=== PATIENT | female | born 2005 | race Two or more races ===

== ENCOUNTER 2025-04-22 12:26 | Emergency (ER) | payer OTHER ==
[~2025-04-22] VITALS: Ht 157.5 cm; Wt 41.1 kg
[2025-04-22 13:48] VITALS: BP 119/66; O2SAT 99
[2025-04-22] MEDS ORDERED: FAMOTIDINE/PF 20 MG/2 ML VIAL IV STA (14:31)
[2025-04-22] MEDS ORDERED: ONDANSETRON HCL 2 MG/ML VIAL IV STA (14:31)
[2025-04-22] MEDS ORDERED: 0.9 % SODIUM CHLORIDE 500 ML IV SCH (14:45)
[2025-04-22] MEDS ORDERED: 0.9 % SODIUM CHLORIDE 500 ML IV ONE (14:45)
[2025-04-22] MEDS ORDERED: FAMOTIDINE/PF 20 MG/2 ML VIAL ONE (15:27)
[2025-04-22] MEDS ORDERED: ONDANSETRON HCL 2 MG/ML VIAL ONE (15:27)
[2025-04-22 15:40] LABS: BASO % 0.4 % (0.1-1.2); EOS # 0.00 (0.04-0.54); EOS % 0.0 % (0.7-7.0); LYMPH # 1.24 (1.18-3.74); LYMPH % 7.9 % (19.3-53.1); MEAN PLATELET VOLUME 9.90 fl (9.4-12.4); MONO # 0.59 (0.24-0.82); MONO % 3.7 % (4.7-12.5); NEUT # 13.80 (1.56-6.13); NEUT % 87.7 % (34.0-71.1); RED CELL DISTRIBUTION WIDTH 16.0 % (11.6-14.4)
[2025-04-22 16:03] LABS: BUN CREA RATIO 23.0 (7.0-25.0); CREATININE SERUM 0.65 mg/dL (0.55-1.02); GFR 117.42; GLUCOSE FASTING 81.0 mg/dL (65-100); OSMOLALITY SERUM 279.0 MOSM/KG (275-295)
[2025-04-22 16:16] LABS: URINE APPEARANCE Clear; URINE BILIRRUBIN Negative (NEGATIVE); URINE BLOOD Negative; URINE COLOR Yellow; URINE GLUCOSE Negative (NEGATIVE); URINE LEUKOCYTE Negative; URINE NITRATE Negative; URINE PROTEIN 30 (NEGATIVE); URINE UROBILINOGEN 0.2 E.U./dl
[2025-04-22 16:18] LABS: URINE EPITHELIAL CELLS 32.7 uL (0.0-38.8); URINE RBC 3.0 uL (0.0-20.8); URINE WBC 45.8 uL (0.0-23.2)
[2025-04-22 16:20] LABS: URINE CAST 0.87 uL (0.0-1.40); URINE KETONE 80 (NEGATIVE)
[2025-04-22] MEDS ORDERED: PEPCID AC20 MG PO (18:20)
== END 2025-04-22 18:34 | disposition home or self-care (01) ==
LOC: EMR PED 12:26 → ER 12:26 → EMR PED 16:59
PROVIDERS: Pediatrics
DX: K52.9 Noninfective gastroenteritis and colitis, unspecified (principal); R10.9 Unspecified abdominal pain; R42 Dizziness and giddiness